=== PATIENT | female | born 1975 | race Caucasian/White ===

== ENCOUNTER 2017-01-21 00:12 | Emergency (ER) | payer SELFPAY ==
--- NOTE | ~2017-01-21 | ER ---
PATIENT'S NAME: AARON CANAS [facility] AGE: 41 Y [address] ROOM: [place] [address] LOCATION: [facility] ADMIT DATE: 01/21/2017 ER/Outpatient Report DISCHARGE DATE: FAMILY PHYSICIAN: Physician, Unknown ATTENDING PHYSICIAN: Luis Baires Admission date and time documented in medical record. I saw the patient at 0010 hours. CHIEF COMPLAINT: Fall out of the top bunk bed at [facility]. HISTORY OF PRESENT ILLNESS: This patient is a 41-year-old female who was up in the top bunk and fell when she got up to go to the bathroom. She usually is in the bottom bunk. Did not realize that she was in the top bunk and fell out of bed. The patient did hit her head and the back and did have a brief loss of consciousness. Complains of head pain, neck and spine pain, right hip and leg pain. She also has pain across her anterior chest and across her abdomen. Denies any upper extremity pain or right leg pain. No incontinence of stool or urine. No abdominal pain. No nausea or vomiting. No recent colds, coughs, flus, fever, chills, or sweats. Little lightheaded, dizzy. Headache. No eyes, ears, nose, throat pain. Does have neck and spine pain. Other than left leg, she has no extremity discomfort, no skin eruptions or rash. No lacerations, contusions, swellings. No history of endocrine problems. She is bipolar. Has posttraumatic stress disorder, depression, anxiety. No history of CVA, TIA, or seizure disorder. No endocrine problems. HOME MEDICATIONS: See attached medication list. ALLERGIES: NONE. SOCIAL HISTORY: The patient smokes 3 to 4 cigarettes a day, nondrinker. PAST MEDICAL HISTORY: Tobacco abuse, posttraumatic stress disorder, bipolar disorder, depression, anxiety. OPERATIONS: Appendectomy, cholecystectomy, tubal ligation. REVIEW OF SYSTEMS: PATIENT'S NAME: AARON CANAS [facility] AGE: 41 Y [address] ROOM: [place] [address] LOCATION: [facility] ADMIT DATE: 01/21/2017 ER/Outpatient Report DISCHARGE DATE: FAMILY PHYSICIAN: Physician, Unknown ATTENDING PHYSICIAN: Luis Baires All systems reviewed by me and are negative with the exception of those discussed in the history of present illness. PHYSICAL EXAMINATION: VITAL SIGNS: Blood pressure 120/78, pulse 83, respirations 20, O2 saturation on room air is 95%. HEAD: Normocephalic. No abrasion, contusion, laceration, or swellings. EYES: Extraocular movements intact. PERRL. Sclerae and conjunctivae clear. Nonicteric. No hyphema. No subconjunctival hemorrhages. EARS, NOSE, THROAT: Clear. Mucous membranes moist. Teeth, jaw intact. NECK: The patient has a rigid cervical collar. She is on a rigid spine board. SPINE: Tender but no deformity. LUNGS: Clear. Good air flow. No rales, rhonchi, or wheezes. HEART: Regular. Pulses are palpable. Tender across the anterior chest wall but no deformity. ABDOMEN: Soft. Tender throughout but no true guarding or rigidity. No rebound tenderness. No distention. Good bowel tones. No organomegaly or abnormal mass palpable. No CVA tenderness. PELVIS: Stable, nontender. EXTREMITIES: The patient has tenderness in the left hip, femur, knee, tib-fib area, but no swelling, no abrasions, no contusions, no deformities. No peripheral edema or cyanosis. NEUROVASCULAR: Appears to be intact. SKIN: Clear. IMAGING DATA: X-ray of the left femur showed no fracture or dislocation. X-ray of the tib- fib showed no fracture or dislocation. We will review all plain films with the radiologist. CT scan of the head showed no intracranial bleed, midline shift, mass effect, or skull fracture. CT scan of the cervical, thoracic, and lumbosacral spine showed no acute fracture or subluxation. CT scan of the chest, abdomen, and pelvis were normal showing no abnormalities, intrathoracic or intraabdominal. No free air or free fluid, no pneumothorax, no lung contusions, no effusions. All CT scans read by Radiology, see dictated transcribed report. IMPRESSION: 1. Fall from the top bunk onto floor with brief loss of consciousness, PATIENT'S NAME: AARON CANAS [facility] AGE: 41 Y [address] ROOM: [place] [address] LOCATION: [facility] ADMIT DATE: 01/21/2017 ER/Outpatient Report DISCHARGE DATE: FAMILY PHYSICIAN: Physician, Unknown ATTENDING PHYSICIAN: Luis Baires concussion, pain in left leg with headache, neck pain, spine pain, chest and abdominal pain. Found no abnormalities on CT scan of the head; cervical, thoracic, lumbosacral spine; abdomen and pelvis; or chest. No abnormalities on plain film of the left lower extremity. 2. Tobacco abuse. 3. Bipolar disorder with depression and anxiety. 4. Posttraumatic stress disorder. PLAN: The patient was given [place] 5/325 one orally here in the emergency room for pain. Discharged home with observation. Activity as tolerated. Ice to sore areas for 72 hours. Continue home medications and care. Tramadol 50 mg 1 every 6 hours as needed for pain. Follow up with personal physician as needed. LUIS BAIRES MD SDS/modl /[id number] d: 01/21/17 0228 t: 01/21/17 1821, OUTPATIENT REPORT
[~2017-01-21 00:12] MED LIST: AMBIEN10 MG PO; ANTIVERT25 MG PO; COLACE100 MG PO; DELTASONE5 MG PO; EFFEXOR XR150 MG PO; EPIPEN0.3 MG IM; FLEXERIL10 MG PO; IBUPROFEN800 MG PO; KLONOPIN0.5 MG PO; LAMICTAL100 MG PO; MINIPRESS2 MG PO; MOTRIN600 MG PO; NAPROSYN500 MG PO; NEURONTIN300 MG PO; NICODE TOP; NICORETTE 2 MG2 MG PO; PEPCID20 MG PO; PROBIOTIC1 EAC1 PO; PROVENTIL OR V6.7 GM INH; PROZAC40 MG PO; REMERON15 MG PO; REVIA50 MG PO; SEROQUEL100 MG PO; SEROQUEL50 MG PO; SINEQUAN25 MG PO; THERA-VITE W/ B1 TAB PO; TYLENOL325 MG PO; VENLAFAXINE H37.5 MG PO; ZYPREXA10 MG PO
[2017-01-28] MEDS ORDERED: WELLBUTRIN SR150 MG PO (10:19)
[2017-01-28] MEDS ORDERED: VISTARIL50 MG PO (10:31)
[2017-01-28] MEDS ORDERED: NICORETTE 2 MG2 MG PO (10:32)
[2017-01-28] MEDS ORDERED: KLONOPIN PO (10:42)
[2017-01-29] MEDS ORDERED: KLONOPIN0.5 M1 PO (07:33)
== END 2017-01-21 02:06 | disposition disaster alternative care site (69) ==
LOC: GACC 00:12
DX: S06.0X1A Concussion with loss of consciousness of 30 minutes or less, initial encounter (principal); R07.9 Chest pain, unspecified; R10.9 Unspecified abdominal pain; M54.2 Cervicalgia; M79.605 Pain in left leg; F31.9 Bipolar disorder, unspecified; F41.9 Anxiety disorder, unspecified; F43.10 Post-traumatic stress disorder, unspecified; F17.210 Nicotine dependence, cigarettes, uncomplicated; Z90.49 Acquired absence of other specified parts of digestive tract; Z98.51 Tubal ligation status; Z79.899 Other long term (current) drug therapy; W06.XXXA Fall from bed, initial encounter
CPT/HCPCS: Q9967

== ENCOUNTER 2017-01-21 17:23 | Emergency (ER) | payer SELFPAY ==
--- NOTE | ~2017-01-21 | ER ---
PATIENT'S NAME: AARON CANAS [facility] AGE: 41 Y [address] ROOM: [place] [address] LOCATION: [facility] ADMIT DATE: 01/21/2017 ER/Outpatient Report DISCHARGE DATE: 01/21/2017 FAMILY PHYSICIAN: PHYSICIAN, NO ATTENDING PHYSICIAN: Marylou Ya Time of Arrival: 1723 hours. Time of Evaluation: 1740 hours. CHIEF COMPLAINT: Foot pain. HISTORY OF PRESENT ILLNESS: This is a 41-year-old female, who presents to the ER with left foot pain. The patient tells us that she fell off a bunk bed at the [facility] last evening. She states that she has continued to have pain, and she is wanting it checked out. The patient states she is also feeling severely depressed, and she was recently discharged from [facility]. She states she was hospitalized there for 2 weeks, and she told them that she did not feel like she was ready to be dismissed, and they let her go any ways. She states that she has been staying at [facility] since then. She still is hearing voices in her head. She states she does have a plan to slit her wrist with razor blades at [facility]. She states that she just does not want to live anymore. The patient denies being here in the emergency room last night, but she was evaluated here last evening and did not have complaints of foot pain at that time. She has been keeping her home medications with her at [facility]. She states she did not turn those in to the [facility] administrators. She states that she believes that her roommate got into her medications. She denies any other problems at this time. ALLERGIES: PLEASE SEE MEDICATION LIST IN NURSE'S NOTES. MEDICATIONS: Please see medication list in nurse's notes. PAST MEDICAL HISTORY: Severe depression, anxiety, lupus, PTSD. PAST SURGICAL HISTORY: She had cholecystectomy, appendectomy, and a tubal ligation. SOCIAL HISTORY: Denies smoking, drug use. PATIENT'S NAME: AARON CANAS [facility] AGE: 41 Y [address] ROOM: [place] [address] LOCATION: [facility] ADMIT DATE: 01/21/2017 ER/Outpatient Report DISCHARGE DATE: 01/21/2017 FAMILY PHYSICIAN: PHYSICIAN, NO ATTENDING PHYSICIAN: Marylou Ya REVIEW OF SYSTEMS: All systems reviewed were negative with the exception of those discussed in the HPI. PHYSICAL EXAMINATION: VITAL SIGNS: Height 5 feet 3 inches stated, weight 88.5 kg taken, blood pressure is 119/78, pulse 90, respirations 18, temperature 97.7 degrees tympanically, saturations 100% on room air. [place]bright Coma Score is 15. GENERAL: An alert, calm, well-developed female, in no acute distress. HEENT: Head: Normocephalic. Eyes: Pupils are equal and reactive to light. LUNGS: Clear to auscultation bilaterally. HEART: Regular rate and rhythm. ABDOMEN: Soft, it is nontender. She has good bowel sounds throughout. No masses are palpated. EXTREMITIES: No clubbing or cyanosis. She does have some tenderness across the top of her foot with palpation over the second, third, and fourth metatarsals. She has some slight bruising noted to the top of her foot. She has no tenderness over the medial or lateral malleolus. No tenderness in the calcaneus. NEURO: Cranial nerves 2 through 12 grossly intact. Gait is steady without assistance. LABORATORY DATA AND X-RAYS: CBC: White count is 10.6, hemoglobin is 13.0, platelets 369. ANC is 6.9. CMS was unremarkable. Alcohol level is less than 0.010. Acetaminophen is less than 2.0. Salicylate is less than 2.8. TSH is 2.420. Urinalysis is negative for any infection. Drug screen was negative. X-ray of the left foot shows a left distal fourth metatarsal fracture. IMPRESSION: 1. Suicidal ideations. 2. Left fourth metatarsal fracture. ASSESSMENT AND PLAN: We did give the patient a Percocet here in the emergency room for her pain. We did contact [facility]. They state that they will accept her, but the patient states that she will not go over as a self-committal. Therefore, we had to contact the Police Department. They came over, and they will be emergency protective custodying her to go over [facility]. [facility] did not want her to have anything on her foot that requires any straps or Toribio wraps. Therefore, we applied an orthotic shoe, and we cut the straps off shorter for support of her foot. She needs ice and elevate, and we will be sending her over to [facility] for further care. The patient understands and agrees with care. PATIENT'S NAME: AARON CANAS [facility] AGE: 41 Y [address] ROOM: [place] [address] LOCATION: [facility] ADMIT DATE: 01/21/2017 ER/Outpatient Report DISCHARGE DATE: 01/21/2017 FAMILY PHYSICIAN: PHYSICIAN, NO ATTENDING PHYSICIAN: Marylou Ya CONTRERAS MARCUM PA-C FOR MD FEDERICO LAGOS/[place] /[id number] d: 01/22/17 0039 t: 01/25/17 0912, OUTPATIENT REPORT
[2017-01-21 18:25] LABS: BASOPHIL # 0.1 K/uL (0.0-0.2); BASOPHIL % 0.5 %; EOSINOPHIL # 0.3 K/uL (0.0-0.5); EOSINOPHIL % 2.9 %; HEMATOCRIT 38.2 % (33.0-46.0); IMMATURE GRANULOCYTE % 0.4 %; LYMPHOCYTE # 2.3 K/uL (0.8-4.0); LYMPHOCYTE % 21.8 %; MCH 31.9 pg (27.0-34.0); MCV 93.9 fl (83.0-98.0); MONOCYTE # 0.9 K/uL (0.0-1.0); MONOCYTE % 8.9 %; MPV 9.2 fl (9.4-12.4); NEUTROPHIL # (ANC) 6.9 K/uL (1.8-7.8); NEUTROPHIL % 65.5 %; NRBC % 0 /100WBC (0-0.00); PLATELET COUNT 369 K/uL (150-450); RBC 4.07 M/uL (3.50-5.50); RDW-CV 13.1 % (11.9-14.6); WBC 10.6 K/uL (4.0-11.0)
[2017-01-21 18:38] LABS: BILIRUBIN URINE NEGATIVE (NEGATIVE); BLOOD URINE 250 /UL (NEGATIVE); COLOR URINE YELLOW (YELLOW); GLUCOSE URINE NEGATIVE (NEGATIVE); KETONE URINE NEGATIVE (NEGATIVE); LEUKOCYTES URINE 100 /UL (NEGATIVE); NITRITE URINE NEGATIVE (NEGATIVE); PH URINE 6.5 (4.0-8.0); PROTEIN URINE NEGATIVE (NEGATIVE); SPEC GRAVITY URINE 1.005 (1.003-1.035); TURBIDITY URINE CLEAR (CLEAR); UROBILINOGEN URINE NORMAL (NORMAL)
[2017-01-21 18:42] LABS: ALBUMIN 3.9 gm/dL (3.5-5.0); ALK PHOS 88 IU/L (33-138); ALT 41 IU/L (12-78); BLOOD UREA NITROGEN 15 mg/dL (6-24); CALCIUM 8.9 mg/dL (8.5-10.5); CHLORIDE 104 mMol/L (96-110); CO2 27 mMol/L (22-32); CREATININE 0.9 mg/dL (0.5-1.1); SODIUM 139 mMol/L (135-145); TOTAL BILIRUBIN 0.2 mg/dL (0.0-1.5); TOTAL PROTEIN 7.5 g/dL (6.0-8.4)
[2017-01-21 18:43] LABS: ANION GAP 11.8 (10.0-19.0)
[2017-01-21 18:44] LABS: RBC URINE NEGATIVE #/HPF (NEGATIVE)
[2017-01-21 18:44] LABS: AST 36 IU/L (10-40); POTASSIUM 3.8 mMol/L (3.7-5.1)
[2017-01-21 18:45] LABS: BACTERIA URINE NEGATIVE (NEGATIVE)
[2017-01-21 18:55] LABS: COCAINE NEGATIVE (NEGATIVE); OPIATES NEGATIVE (NEGATIVE)
[2017-01-21 18:56] LABS: AMPHETAMINE NEGATIVE (NEGATIVE); BARBITURATE NEGATIVE (NEGATIVE)
[2017-01-28] MEDS ORDERED: WELLBUTRIN SR150 MG PO (10:19)
[2017-01-28] MEDS ORDERED: VISTARIL50 MG PO (10:31)
[2017-01-28] MEDS ORDERED: NICORETTE 2 MG2 MG PO (10:32)
[2017-01-28] MEDS ORDERED: KLONOPIN PO (10:42)
[2017-01-29] MEDS ORDERED: KLONOPIN0.5 M1 PO (07:33)
== END 2017-01-21 19:32 | disposition disaster alternative care site (69) ==
LOC: GACC 17:23
PROVIDERS: Physician Assistant Medical
DX: S92.342A Displaced fracture of fourth metatarsal bone, left foot, initial encounter for closed fracture (principal); R45.851 Suicidal ideations; F41.9 Anxiety disorder, unspecified; F32.9 Major depressive disorder, single episode, unspecified; F43.10 Post-traumatic stress disorder, unspecified; Z90.49 Acquired absence of other specified parts of digestive tract; Z98.51 Tubal ligation status; Z79.899 Other long term (current) drug therapy; W06.XXXA Fall from bed, initial encounter
CPT/HCPCS: G0480

== ENCOUNTER 2017-02-15 13:18 | Observation (INO) | payer SELFPAY ==
[~2017-02-15] VITALS: Ht 160 cm; Wt 91.4 kg
--- NOTE | ~2017-02-15 | ER ---
PATIENT'S NAME: AARON CANAS [facility] AGE: 41 Y [address] ROOM: [id number] [place], [place] [address] LOCATION: [facility] ADMIT DATE: 02/15/2017 ER/Outpatient Report DISCHARGE DATE: FAMILY PHYSICIAN: PHYSICIAN, NO ATTENDING PHYSICIAN: DO HERNÁNDEZ Time of Arrival: 1318 hours. Time of Evaluation: 1329 hours. IDENTIFICATION: A 41-year-old female. CHIEF COMPLAINT: Syncope and seizure. HISTORY OF PRESENT ILLNESS: The patient is a 41-year-old female, who was doing laundry. She said folding the laundry when she had this sudden shock like experience on the right side of her body and then she passed out. She does not know for how long. It was not witnessed. When she called 911, [facility] arrived to her house, and at that time she had a witnessed seizure lasting approximately 1 minute. The patient did fall onto the concrete ground level, lost consciousness. She complains of pain in the posterior scalp, neck, and back pain. She states the right side of her body feels numb and feels different to light touch. She has never had a seizure before. She was postictal initially. On arrival here to the emergency room, she was immobilized on a long spine board with a C-collar in place, but the spine board was really bothering her, so she was log rolled off, the C-collar remained on, and she was removed from the spine board. ALLERGIES: NO KNOWN DRUG ALLERGIES. CURRENT MEDICATIONS: She does not know what medications she is taking. We did receive a list from [facility], but she states she is not taking all of those. It looks like she is on quite a few psych medications to include: 1. Clonazepam 0.5 mg t.i.d. 2. Gabapentin 600 mg 4 times daily. 3. Mirtazapine 15 mg at h.s. 4. Naltrexone 50 mg in the morning. 5. Naproxen 500 mg b.i.d. 6. Olanzapine 20 mg at h.s. 7. Cyclobenzaprine 10 mg t.i.d. 8. Tramadol 50 mg q.6 hours p.r.n. pain. The patient states to me that she is not taking that medication, although she did have 20 prescribed on PATIENT'S NAME: AARON CANAS [facility] AGE: 41 Y [address] ROOM: [id number] [place], [place] [address] LOCATION: [facility] ADMIT DATE: 02/15/2017 ER/Outpatient Report DISCHARGE DATE: FAMILY PHYSICIAN: PHYSICIAN, NO ATTENDING PHYSICIAN: DO HERNÁNDEZ January 21. 9. Bupropion SR 150 mg daily initiated on January 28. Bupropion was increased on February 03 to 200 mg daily. 10. Hydroxyzine 50 mg q.6 hours p.r.n. 11. Topiramate 50 mg daily prescribed on February 07. The patient states she does not have a physician, and it looks like these medications have been prescribed by Margot Ramsay and Dr. Carballo from [facility]. MEDICAL PROBLEMS: Depression, previous suicide gestures with most recent on January 29, 2017 intentional overdose of tramadol and Ambien. The patient reports she has a history of lupus, but she does not follow up with a regular physician for this, and I have no confirmation of this. History of polysubstance abuse including alcohol and methamphetamine. PTSD, this information was obtained from the old records because the patient did not want to talk about her psychiatric history. SOCIAL HISTORY: The patient lives in [place] with a "boyfriend." The boyfriend states that he is not really her boyfriend. She has been living there for 8 days, and apparently she bounces around from place to place. Tobacco use, half pack per day for 15 years. Alcohol use, denies. Drug use, denies. Old records reflect that she has a history of alcohol and methamphetamine abuse. PAST SURGICAL HISTORY: Appendectomy, tubal ligation, and cholecystectomy. REVIEW OF SYSTEMS: All systems reviewed and negative other than what is noted in the HPI. Last menstrual period just ended. PHYSICAL EXAMINATION: VITAL SIGNS: Height 5 feet 3 inches, weight 98.9 kg, blood pressure 134/77, pulse 90, respirations 16, temperature 98, saturations 99% on room air. GENERAL: A 41-year-old female, in mild distress. HEENT: Head: Normocephalic. She does have scalp swelling, posterior right parietal tender to palpation. Eyes: Pupils equal and reactive to light and accommodation. Extraocular movements intact. Nose: Mucosa pink. No lesions. Mouth: No lesions. No malocclusion of her teeth. Pharynx benign. NECK: Immobilized in a C-collar. LUNGS: Clear to auscultation. Breath sounds are equal. No rhonchi, wheezes, or rales. HEART: Regular rate and rhythm. No murmur, rub, or gallop. ABDOMEN: Bowel sounds present. Soft, nondistended, nontender. PATIENT'S NAME: AARON CANAS [facility] AGE: 41 Y [address] ROOM: [id number] [place], [place] [address] LOCATION: [facility] ADMIT DATE: 02/15/2017 ER/Outpatient Report DISCHARGE DATE: FAMILY PHYSICIAN: PHYSICIAN, XIMENA ATTENDING PHYSICIAN: DO HERNÁNDEZ SKIN: [place], warm, and dry. No lesions or rashes noted. NEURO: The patient is alert and oriented x4. Cranial nerves 2 through 12 grossly intact. Motor strength 5/5 throughout. Sensation is intact to light touch. No lower extremity edema. The patient was log rolled from the spine board. C-collar remained in place. She has tenderness to palpation pretty much her entire spine. No palpable deformities. No bruising or ecchymosis. LABORATORY DATA AND X-RAYS: EKG: Normal sinus rhythm at 89 beats per minute. No acute ST elevation or depression. Urine drug screen negative. Sodium 141, potassium 3.8, chloride 109, CO2 of 24, BUN 10, creatinine 0.9, blood sugar 111. Liver enzymes normal. Alcohol less than 0.010. CPK 274, CK-MB 5.2, troponin I less than 0.040. Acetaminophen less than 2. Salicylate less than 2.8. HCG less than 1. UA negative. Hemoglobin 12.2, hematocrit 36.2, platelets 404, white count 9.4 with a normal differential. Head CT, moderate size right superior parietal scalp hematoma, no other acute findings. C-spine, no acute findings. T-spine, no acute findings. L-spine, shallow posterior right L5-S1 disk protrusion. No acute findings otherwise noted. IMPRESSION: 1. Syncopal episode of uncertain etiology. 2. Head injury with loss of consciousness. Negative head CT. 3. New onset seizure. The patient does have a history of tramadol overdose recently a couple of weeks ago. She currently states she is not taking tramadol, but she was recently started on Wellbutrin. 4. Headache and back pain. The patient was given Toradol 15 mg IV here in the emergency room. 5. Neck pain. The patient's cervical spine CT was negative. Her C-collar was removed, but she had midline tenderness to palpation so was placed in an [place] collar per [employer]. 6. History of polysubstance abuse. 7. History of depression. 8. History of anxiety. 9. The patient reports history of lupus. PLAN: For observation, admission per Dr. Hernández, hospitalist, who did evaluate her in the emergency room. PATIENT'S NAME: AARON CANAS [facility] AGE: 41 Y [address] ROOM: [id number], [place] [address] LOCATION: [facility] ADMIT DATE: 02/15/2017 ER/Outpatient Report DISCHARGE DATE: FAMILY PHYSICIAN: PHYSICIAN, NO ATTENDING PHYSICIAN: DO HERNÁNDEZ KEELEY STONER MD CAR/modl /[id number] d: 02/15/172306 t: 02/23/172039, OUTPATIENT REPORT
--- NOTE | ~2017-02-15 | HP ---
PATIENT'S NAME: AARON CANAS [facility] AGE: 41 Y [address] ROOM: [id number] [place], [place] [address] LOCATION: GICU ADMIT DATE: 02/15/2017 History & Physical DISCHARGE DATE: FAMILY PHYSICIAN: PHYSICIAN, NO ATTENDING PHYSICIAN: DO SCOTT DATE OF SERVICE: 02/15/2017 CHIEF COMPLAINT: First onset seizure. HISTORY OF PRESENT ILLNESS: This is a pleasant 41-year-old female with an extensive psychiatric history of anxiety and depression on multiple agents who presents following her first ever episode of seizure at home. The patient notes that she has been feeling off for the past 3 to 4 days, occasionally slurring her words and suffered what she felt was an "electric shock like sensation" this morning followed by a brief episode of syncope, this was unwitnessed. Subsequently at home, she did experience what I am told was an approximately 1 minute tonic-clonic witnessed seizure with postictal confusion. She did fall and hit her head. CT in the ER shows a right superior superficial scalp hematoma, otherwise unremarkable. She is endorsing ongoing mild neck pain and C-collar is in place with negative cervical and thoracic spine imaging by way of CT scan. The patient notes no other recent contributors to her presentation including no fevers, chills, nausea, vomiting, chest pain, shortness of breath, cough, palpitations, abdominal pain, dysuria, constipation, diarrhea, leg swelling, or focal weakness. She feels minimally confused currently and has trouble finding words, but is otherwise back to her baseline status. Of note, there was question of recent drug use. The patient does note that with her optics technical officer recently she had a positive UDS for amphetamines. Did not get into the details of her probation with her today per her request. In addition, of note, the patient has experienced a fall from bed resulting in a concussion approximately a month ago and notes that bupropion was the most recent addition to her medication regimen also within the last 1 to 2 months. She states that she does not have a PCP currently and carries a diagnosis of lupus for which she has not been on medications recently. MEDICAL HISTORY: 1. Anxiety. 2. Depression. 3. Lupus reportedly diagnosed by Dr. Farr in [place]. 4. Chronic pain. SURGICAL HISTORY: History of appendectomy, history of cholecystectomy, history of tubal PATIENT'S NAME: AARON CANAS [facility] AGE: 41 Y [address] ROOM: [place] [address] LOCATION: [facility] ADMIT DATE: 02/15/2017 History & Physical DISCHARGE DATE: FAMILY PHYSICIAN: PHYSICIAN, NO ATTENDING PHYSICIAN: DO SCOTT ligation. FAMILY HISTORY: Reviewed and noncontributory to current presentation. No prior known seizure disorders in family members. SOCIAL HISTORY: Half pack per day smoker x5 years. The patient denies current or recent illicit drug use. Also, denies significant alcohol use of late. Lives in [place]. ALLERGIES: NONE. MEDICATIONS: These are currently being reconciled, but of note she brings a list with the following medications. 1. Clonazepam. 2. Gabapentin. 3. Mirtazapine. 4. Naproxen. 5. Olanzapine. 6. Flexeril. 7. Tramadol. 8. Bupropion. 9. Hydroxyzine. 10. Topiramate. 11. The patient notes that she was previously on prednisone with lupus flares, but has not been on this for some time. REVIEW OF SYSTEMS: Complete review of systems performed and negative except as noted above in HPI. PHYSICAL EXAMINATION: VITAL SIGNS: 98.0 temperature, blood pressure 134/77, respirations 16, pulse 80s, saturating 99% on room air. GENERAL: Lying comfortably in bed in no acute distress. HEENT: Head: Raised area over right superior scalp consistent with known hematoma on CT scan. Otherwise, normocephalic, atraumatic without significant ecchymoses. Eyes: Pupils equal, round, reactive to light. Extraocular muscles intact. No nystagmus. No scleral icterus. No conjunctival injection appreciated. Ears: Normal external pinnae. Normal TMs bilaterally. Nose: No rhinorrhea or other nasal discharge. NECK: Supple. No lymphadenopathy. C-collar in place. PATIENT'S NAME: AARON CANAS [facility] AGE: 41 Y [address] ROOM: [place] [address] LOCATION: [facility] ADMIT DATE: 02/15/2017 History & Physical DISCHARGE DATE: FAMILY PHYSICIAN: PHYSICIAN, NO ATTENDING PHYSICIAN: DO SCOTT CARDIOVASCULAR: Regular rate and rhythm. No murmurs, rubs, or gallops appreciated. Pulses 2+ bilaterally in radial and dorsalis pedis. RESPIRATIONS: Clear to auscultation bilaterally. Normal effort, saturating well on room air. ABDOMEN: Soft, nontender, nondistended. Normoactive bowel sounds. EXTREMITIES: Without appreciable edema or other lesions that could be consistent with trauma. NEUROLOGIC: No focal strength deficits, strength is 5/5 bilaterally upper and lower extremities. No focal sensory deficits though the patient did endorse sensory complaints upon arrival to the emergency department. The patient is alert and oriented x3. The patient does seem somewhat labile with regard to her mood and she becomes tearful during visit. LABS AND IMAGING: CBC notable for WBC 9.4, hemoglobin 12.2, platelets 404. CMP notable for sodium 141, potassium 3.8, chloride 109, bicarb 24, BUN 10, creatinine 0.9, glucose 111, calcium 8.2. LFTs within normal limits. Troponin less than 0.04. EKG with normal sinus rhythm. Urinalysis is negative. UDS also negative. Alcohol level negative. Acetaminophen level negative. Salicylate level negative. CT of head, cervical, and thoracic spine negative for acute fracture. Notable only for right superior scalp hematoma as noted above. ASSESSMENT: 1. First onset seizure, also with recent syncopal episode. Seems most likely this is to be related to recent concussion as well as addition of bupropion which is well known to lower the seizure threshold. This is in the setting of apparent recent drug use as well as extensive medication list which could all be contributing to these episodic slurred speech episodes that patient does endorse. We will carefully review home medications and discuss with pharmacy to obtain a refill history before prescribing medications, though we will discontinue bupropion indefinitely. We will also ask Neurology to see for further workup regarding syncopal episode as well as the seizure. 2. Anxiety and depression. As mentioned above, we will judiciously resume home medications, though we will be conservative with this overnight tonight while more information is gathered. 3. Neck pain. [place] collar in place. We will monitor for ongoing tenderness, though cervical and T-spine imaging has been negative to this point. 4. The patient is full code. 5. Deep vein thrombosis prophylaxis. Heparin 5000 units subcu t.i.d. DISPOSITION: Appreciate Neurology evaluation, anticipate observation this evening, and if no further episodes of seizure, confusion, or presyncope, will likely PATIENT'S NAME: AARON CANAS [facility] AGE: 41 Y [address] ROOM: [id number] [place], [place] [address] LOCATION: [facility] ADMIT DATE: 02/15/2017 History & Physical DISCHARGE DATE: FAMILY PHYSICIAN: PHYSICIAN, NO ATTENDING PHYSICIAN: DO SCOTT discharge home tomorrow. I spent 35 minutes on date of admission regarding [id number] patient care and review of records in the emergency department. MD JOAN SHAA/modl /[id number] D: [id number] T: [id number] HISTORY & PHYSICAL
--- NOTE | ~2017-02-15 | CON ---
PATIENT'S NAME: AARON CANAS [facility] AGE: 41 Y [address] ROOM: [id number] [place], [place] [address] LOCATION: GICU ADMIT DATE: 02/15/2017 Consultation DISCHARGE DATE: FAMILY PHYSICIAN: PHYSICIAN, NO ATTENDING PHYSICIAN: DO SCOTT DATE OF CONSULTATION: 02/16/2017 REFERRING PHYSICIAN: DO BOYLE MD TIME: 1:35 p.m. CHIEF COMPLAINT: First onset seizure. HISTORY OF PRESENT ILLNESS: This is a 41-year-old female with an extensive psychiatric history. She has been diagnosed with anxiety and depression and is on multiple agents. She presents after her first ever episode of seizure at home. She states for the last 3 to 4 days, she felt like an electric shock sensation followed by a brief episode of syncope that was unwitnessed. The squad was called from [place] and did go to her home and witnessed a 1-minute tonic-clonic seizure with postictal confusion. She did state she was numb on the right side after that. She did fall and hit her head. She does have a right superior superficial scalp hematoma, but a CT of the head was essentially negative. She does have a C-collar in place for mild neck pain. She has had negative cervical and thoracic spine imaging by way of CT scan. She has been hospitalized recently at [facility] and was started on Wellbutrin. Her other medications, she states are stable, and she has not stopped nor started anything else except the Wellbutrin. She denies not taking any of the medications, which include gabapentin, Topamax, and clonazepam. Today, she states she is still a little confused and a little slow and has been ever since she fell off a bunk bed approximately 2 months ago. The hospitalist note did state the jail officer recently had a positive urine drug screen for amphetamines. She did not offer any of this information to me. No one in her family has ever had any seizure disorder, and she does not have a seizure disorder. She does state that she does not have a primary care physician recent currently, and she does have a diagnosis of lupus per Dr. Farr in [place]. MEDICAL HISTORY: 1. Anxiety. 2. Depression. 3. Lupus, reportedly diagnosed by Dr. Farr in [place]. 4. Chronic pain. PATIENT'S NAME: AARON CANAS [facility] AGE: 41 Y [address] ROOM: [place] [address] LOCATION: GICU ADMIT DATE: 02/15/2017 Consultation DISCHARGE DATE: FAMILY PHYSICIAN: PHYSICIAN, NO ATTENDING PHYSICIAN: DO SCOTT PAST SURGICAL HISTORY: Includes a history of appendectomy, history of cholecystectomy, and history of tubal ligation. FAMILY HISTORY: No prior known seizure disorders in any family member. SOCIAL HISTORY: A half pack-a-day smoker x5 years. She denies any current or recent illicit drug use. She denies alcohol use of late. She lived with her boyfriend in [place], however, he and her are no longer together as of this hospitalization. ALLERGIES: NONE. MEDICATIONS: 1. Clonazepam. 2. Gabapentin. 3. Mirtazapine. 4. Naprosyn. 5. Olanzapine. 6. Flexeril. 7. Tramadol. 8. Bupropion. 9. Hydroxyzine. 10. Topiramate. REVIEW OF SYSTEMS: Complete review of systems was completed and is negative except as mentioned in the HPI. PHYSICAL EXAMINATION: VITAL SIGNS: Temperature 98.2, blood pressure 123/76, respirations 16, pulse 84, she is saturating 99% on room air. GENERAL: Lying comfortably in bed, in no acute distress, eating lunch. HEENT: She does have a scalp hematoma over her right superior scalp. Otherwise, normocephalic. Eyes: Pupils are equal, round, and reactive to light and accommodation. Extraocular muscles are intact. There is no nystagmus noted. NECK: Not examined for range of motion due to the C-collar. There are no bruits auscultated. CARDIOVASCULAR: Regular rate and rhythm without murmur, rub, or gallop. RESPIRATIONS: Clear to auscultation bilaterally. PATIENT'S NAME: AARON CANAS [facility] AGE: 41 Y [address] ROOM: [id number] [place] [id number] LOCATION: [facility] ADMIT DATE: 02/15/2017 Consultation DISCHARGE DATE: FAMILY PHYSICIAN: PHYSICIAN, NO ATTENDING PHYSICIAN: DO SCOTT NEUROLOGICAL: She has no focal strength deficits. Her strength is 5/5 bilateral upper and lower extremities. Sensory is intact to upper and lower extremities to light touch and to temperature. She is alert and oriented x4. Her mood is somewhat tearful because she feels she has nowhere to go after her hospitalization. LABORATORIES AND IMAGING: CBC had a white count of 9.4, hemoglobin 12.2, platelets 404. CMP notable for sodium 141, potassium 3.8, chloride 109, bicarb 24, BUN 10, creatinine 0.9, glucose 111, calcium 8.2. LFTs were in normal limits. Urinalysis was negative. Urine drug screen was negative. Alcohol, acetaminophen, salicylate levels negative. CT of head, cervical, and thoracic spine were negative for acute fracture. ASSESSMENT AND PLAN: 1. First onset seizure with recent syncopal episode. Although she is on 2 AEDs, the gabapentin and the Topamax, this could have been precipitated by the bupropion, which is known to lower the seizure threshold or the concussion of several weeks ago. The bupropion paired with any antipsychotic increases the risk of seizure activity. Medications certainly could have contributed to this. In the future, I would avoid bupropion and also tramadol. It was discussed with the patient also these medications of gabapentin, clonazepam, and Topamax should not be stopped abruptly as this may be seizure inducing. I am not 100% sure that she is compliant with the medications. For instance, she was asked not to return to the [facility] because she did not return her medications one evening. While I was interviewing the patient, she states she felt a seizure coming on. I did take note of her vitals, and they were unchanged, and her heart rate was still in the 80s. She did not have any seizure episodes during that time, but she definitely feels she is going to have a seizure today. There is definitely consideration for a psychogenic event due to the patient's history. What we would like to do is follow this patient up in the outpatient clinic and possibly arrange for a longer EEG, perhaps over several days. At this time, no AED medications are warranted. Lupus is a consideration, and we will follow up on the MRI as ordered. This was discussed with Dr. Magana and the patient. They agreed to the plan of care, and the patient asked appropriate questions. The patient is most concerned with where will she go after hospitalization, and these concerns were passed on to Dr. Magana. Thank you for this consult. If you have any questions, please do not hesitate to notify us. PATIENT'S NAME: AARON CANAS [facility] AGE: 41 Y [address] [place]OM: [id number] [address] LOCATION: [facility] ADMIT DATE: 02/15/2017 Consultation DISCHARGE DATE: FAMILY PHYSICIAN: PHYSICIAN, XIMENA ATTENDING PHYSICIAN: DO SCOTT BARBIE LARSEN APRN FOR DO BOYLE MD PP/[place]ora /[id number] d: 02/16/172020 t: 03/01/17 1700, CONSULTATION REPORT
--- NOTE | ~2017-02-15 | DS ---
PATIENT'S NAME: AARON CANAS [facility] AGE: 41 Y [address] ROOM: [place] [address] LOCATION: [facility] ADMIT DATE: 02/15/2017 Discharge Summary DISCHARGE DATE: 02/17/2017 FAMILY PHYSICIAN: PHYSICIAN, XIMENA ATTENDING PHYSICIAN: Archie Hernández ADMITTING DIAGNOSIS: Possible seizure. DISCHARGE DIAGNOSIS: Seizure. No seizure activity during stay. SECONDARY DIAGNOSES: 1. History of depression. 2. History of multiple drug abuse. 3. Currently history of pain medication seeking behavior. 4. Anxiety. 5. Depression. 6. Unspecified history of lupus. PROCEDURE PERFORMED: CT head, cervical, lumbar, and MRI of brain which all were unremarkable. CONSULTATION: Neurology. HISTORY OF PRESENT ILLNESS: The patient is a 41-year-old female with extensive psychiatric history of anxiety, depression, and on multiple agents who presents following her first episode of seizure at home. The patient notes that she has been feeling off for the past 3-4 days, occasionally slurring her words, and suffered what she feels was an electric shock-like sensation this morning, followed by a brief episode of syncope. This was unwitnessed. Subsequently at home, she did experience what I am told was an approximately 1 minute of tonic-clonic witnessed seizure with postictal confusion. She did fall and hit her head. CT in the ER showed right superficial scalp hematoma, otherwise, unremarkable. Of note, there was a question of recent drug use. The patient does note that with her public service officer recently, she had a positive UDS for amphetamine. I did not get into details on her probation with her today on the day of admission. HOSPITAL COURSE: The patient was admitted, had no seizure activity during stay. The patient had a MRI which was unremarkable. Also patient had a CT of cervical spine and lumbar which shows no fracture. The patient's C-collar was removed. The patient was seen by neurologist. No indication for treatment. The patient's medication of bupropion was discontinued as it decreased the threshold for seizure. During her stay, the patient exhibits pain seeking PATIENT'S NAME: AARON CANAS [facility] AGE: 41 Y [address] ROOM: [place] [address] LOCATION: [facility] ADMIT DATE: 02/15/2017 Discharge Summary DISCHARGE DATE: 02/17/2017 FAMILY PHYSICIAN: PHYSICIAN, NO ATTENDING PHYSICIAN: Archie Hernández behavior on multiple times. After a long discussion, her pain medication was stopped and was treated with Tylenol. Also the patient reports on discharge, requested to be discharged on Klonopin and pain medication. I did discuss with her that cannot be done due to no obvious need for pain medication as she appears stable and also due to her history of abuse. Also requested to be discharged on Klonopin. After a long discussion, she reports that her Klonopin has been discontinued a few weeks ago. She was on 0.5 mg daily and was discontinued by her psychiatrist. Since her Klonopin has been discontinued, there is less suspicion for withdrawal. I discussed that to continue this treatment plan and she needs to be back on to visit her psychiatrist. Apparently, the patient had court today and reports that she will not be able to make it today due to her hospital stay. Also she requested to be sent to a homeless long-term in [place] and that was arranged through our perinatal social worker. However, the patient had a change of mind and reports that she will stay with her mother. CONDITION: Stable. DISPOSITION: Home. DISCHARGE MEDICATIONS: See MAR. DISCHARGE INSTRUCTIONS: To visit the emergency department if she has any signs and symptoms of seizure. FOLLOWUP: With her primary care physician and psychiatrist. PHYSICAL EXAMINATION: VITAL SIGNS: Stable. HEENT: Eyes, extraocular muscles intact. HEART: Regular rate and rhythm. No murmurs, rubs, or gallops. ABDOMEN: Soft, nontender, and nondistended. LUNGS: Clear to auscultation. CONDITIONING MACHINE OPERATOR: Alert and oriented x3. Motor and sensory grossly intact. Greater than 30 minutes spent on the patient discharge planning. MD JOSEP ROSARIO/[place]ora /[id number] d: 02/18/17 0851 t: 02/26/17 1559, DISCHARGE SUMMARY
[~2017-02-15 13:18] MED LIST changes: -TOPIRAMATE50 MG PO
[2017-02-15 13:51] LABS: BASOPHIL # 0.1 K/uL (0.0-0.2); BASOPHIL % 0.6 %; EOSINOPHIL # 0.1 K/uL (0.0-0.5); EOSINOPHIL % 1.4 %; HEMATOCRIT 36.2 % (33.0-46.0); HEMOGLOBIN 12.2 g/dL (10.0-15.0); IMMATURE GRANULOCYTE # 0.1 K/uL (0.0-0.3); IMMATURE GRANULOCYTE % 0.6 %; LYMPHOCYTE # 1.5 K/uL (0.8-4.0); LYMPHOCYTE % 16.2 %; MCH 30.7 pg (27.0-34.0); MCHC 33.7 gm/dL (32.0-36.5); MONOCYTE # 0.8 K/uL (0.0-1.0); MONOCYTE % 8.2 %; MPV 8.4 fl (9.4-12.4); NEUTROPHIL # (ANC) 6.9 K/uL (1.8-7.8); NRBC % 0 /100WBC (0-0.00); PLATELET COUNT 404 K/uL (150-450); RBC 3.98 M/uL (3.50-5.50); RDW-CV 12.3 % (11.9-14.6); WBC 9.4 K/uL (4.0-11.0)
[2017-02-15 13:58] LABS: INR - (THERAPEUTIC) 0.97 (0.92-1.07); PROTIME 10.2 SECONDS (9.8-11.4); PTT 27 SECONDS (25-32)
[2017-02-15 14:06] LABS: BILIRUBIN URINE NEGATIVE (NEGATIVE); BLOOD URINE NEGATIVE /UL (NEGATIVE); COLOR URINE YELLOW (YELLOW); GLUCOSE URINE NEGATIVE (NEGATIVE); KETONE URINE NEGATIVE (NEGATIVE); LEUKOCYTES URINE NEGATIVE /UL (NEGATIVE); NITRITE URINE NEGATIVE (NEGATIVE); PROTEIN URINE NEGATIVE (NEGATIVE); TURBIDITY URINE CLEAR (CLEAR); UROBILINOGEN URINE NORMAL (NORMAL)
[2017-02-15 14:11] LABS: ALBUMIN 3.4 gm/dL (3.5-5.0); ALK PHOS 87 IU/L (33-138); ALT 40 IU/L (12-78); ANION GAP 11.8 (10.0-19.0); AST 36 IU/L (10-40); BLOOD UREA NITROGEN 10 mg/dL (6-24); CALCIUM 8.2 mg/dL (8.5-10.5); CHLORIDE 109 mMol/L (96-110); CO2 24 mMol/L (22-32); CPK 274 IU/L (21-215); CREATININE 0.9 mg/dL (0.5-1.1); POTASSIUM 3.8 mMol/L (3.7-5.1); SODIUM 141 mMol/L (135-145); TOTAL PROTEIN 7.3 g/dL (6.0-8.4)
[2017-02-15 14:14] LABS: TOTAL BILIRUBIN 0.2 mg/dL (0.0-1.5)
[2017-02-15 14:22] LABS: BARBITURATE NEGATIVE (NEGATIVE); COCAINE NEGATIVE (NEGATIVE); OPIATES NEGATIVE (NEGATIVE)
[2017-02-15 14:24] LABS: AMPHETAMINE NEGATIVE (NEGATIVE)
[2017-02-15] MEDS ORDERED: KLONOPIN0.5 MG PO (17:27)
[2017-02-15] MEDS ORDERED: TOPIRAMATE50 MG PO (17:43)
[2017-02-16 05:37] LABS: BASOPHIL # 0.1 K/uL (0.0-0.2); BASOPHIL % 0.6 %; EOSINOPHIL # 0.5 K/uL (0.0-0.5); EOSINOPHIL % 4.9 %; HEMATOCRIT 35.9 % (33.0-46.0); HEMOGLOBIN 12.5 g/dL (10.0-15.0); IMMATURE GRANULOCYTE % 0.3 %; LYMPHOCYTE # 2.4 K/uL (0.8-4.0); LYMPHOCYTE % 25.1 %; MCH 31.3 pg (27.0-34.0); MCHC 34.8 gm/dL (32.0-36.5); MPV 8.5 fl (9.4-12.4); NEUTROPHIL # (ANC) 5.7 K/uL (1.8-7.8); NEUTROPHIL % 59.1 %; NRBC % 0 /100WBC (0-0.00); PLATELET COUNT 394 K/uL (150-450); RBC 3.99 M/uL (3.50-5.50); RDW-CV 12.4 % (11.9-14.6); WBC 9.6 K/uL (4.0-11.0)
[2017-02-16 05:52] LABS: ANION GAP 11.6 (10.0-19.0); CALCIUM 8.7 mg/dL (8.5-10.5); CREATININE 0.9 mg/dL (0.5-1.1); POTASSIUM 3.6 mMol/L (3.7-5.1)
[2017-02-17 03:27] LABS: BILIRUBIN URINE NEGATIVE (NEGATIVE); BLOOD URINE NEGATIVE /UL (NEGATIVE); COLOR URINE YELLOW (YELLOW); GLUCOSE URINE NEGATIVE (NEGATIVE); KETONE URINE NEGATIVE (NEGATIVE); LEUKOCYTES URINE 25 /UL (NEGATIVE); NITRITE URINE NEGATIVE (NEGATIVE); PROTEIN URINE NEGATIVE (NEGATIVE); TURBIDITY URINE 2+ (CLEAR); UROBILINOGEN URINE NORMAL (NORMAL)
[2017-02-17 03:57] LABS: AMORPHOUS URINE 2+ (NEGATIVE); BACTERIA URINE MODERATE (NEGATIVE); EPITHELIAL URINE 20-50 #/HPF (NEGATIVE); RBC URINE NEGATIVE #/HPF (NEGATIVE); WBC URINE 0-2 #/HPF (NEGATIVE)
== END 2017-02-17 14:06 | disposition disaster alternative care site (69) ==
LOC: GMED 13:18 → GICU 16:19
PROVIDERS: Family Medicine; Internal Medicine; ADMIT Internal Medicine
DX: R56.9 Unspecified convulsions (principal); F41.9 Anxiety disorder, unspecified; F32.9 Major depressive disorder, single episode, unspecified; G89.29 Other chronic pain; Z90.49 Acquired absence of other specified parts of digestive tract; Z98.51 Tubal ligation status; Z98.890 Other specified postprocedural states; F17.210 Nicotine dependence, cigarettes, uncomplicated; M32.9 Systemic lupus erythematosus, unspecified
CPT/HCPCS: G0378; G0480; J0696; J1644; J1885; J7040; J7050

== ENCOUNTER → 2017-02-15 | Outpatient (CLI) | payer SELFPAY ==
[~2017-02-15] MED LIST changes: +KLONOPIN PO; +KLONOPIN0.5 M1 PO; +TOPIRAMATE50 MG PO; +VISTARIL50 MG PO; +WELLBUTRIN SR150 MG PO
== END | disposition disaster alternative care site (69) ==
LOC: GAMB 12:50
DX: S19.9XXA Unspecified injury of neck, initial encounter (principal); M54.2 Cervicalgia; M54.9 Dorsalgia, unspecified; R11.0 Nausea; R53.1 Weakness; R51 Headache; Z86.69 Personal history of other diseases of the nervous system and sense organs
CPT/HCPCS: J2405